=== PATIENT | female | born 1975 ===

== ENCOUNTER 2016-08-05 16:55 | Emergency (ER) | payer SELFPAY ==
[2016-08-05 16:56] VITALS: BMI 24.9
[2016-08-05 17:22] VITALS: BP 106/65; PULSE 84; RESP 18; O2SAT 100
--- NOTE | 2016-08-05 17:41 | ED PDOC ---
HPI: CCC, URI, Sore Throat Time Seen by Provider: 08/05/16 17:28 Chief Complaint (Nursing): ENT Problem Chief Complaint (Provider): right earache History Per: Patient History/Exam Limitations: no limitations Have you had recent travel within the past 21 days to any of the following countries: [place], [place], [place] or [place]?: No Onset/Duration Of Symptoms: Days (x 3) Location Of Pain: Ear(s), Throat Associated Symptoms: denies: Fever Additional Complaint(s): Catia Montiel is a 41 year old female, with no previous medial history, who presents to the ED with complaints of right earache ongoing for the past 3 days. Pt states pain radiated from the ear to her throat. Pt denies any recent swimming, fevers or changes in hearing. Pt reports to self medicating with motrin to alleviate symptoms which she reports to last taking yesterday. Pt denies any additional complaints at this time. Of note, pt reports to experiencing similar symptoms last year where she was prescribed pills and ear drops. PMD: none provided Past Medical History Reviewed: Historical Data, Nursing Documentation, Vital Signs Vital Signs: Last Vital Signs Temp Pulse 84 08/05/16 17:20 Resp 18 08/05/16 17:20 BP 106/65 08/05/16 17:20 Pulse Ox 100 08/05/16 17:47 - Medical History PMH: Hypothyroidism - Family History Family History: States: No Known Family Hx - Home Medications Home Medications: Ambulatory Orders Medication Instructions Recorded Ciprofloxacin [Cipro] 500 mg PO BID 10/08/15 Docusate [Colace] 100 mg PO Q8 10/08/15 Loratadine [Claritin] 10 mg PO DAILY 10/08/15 Oxycodone HCl/Acetaminophen 1 tab PO Q6 PRN 10/08/15 [Percocet 325 mg-5 mg] Ciprofloxacin [Cipro] 500 mg PO BID #14 tab 01/18/16 Methylprednisolone [Medrol Dose 4 mg PO DAILY #21 mg 01/18/16 Pack (21 tabs)] Naproxen [Naprosyn] 500 mg PO BID PRN #30 tab 01/18/16 Amoxicillin [Amoxil 500 mg Cap] 500 mg PO Q8 #30 cap 08/05/16 Ofloxacin Otic 0.3% [Floxin 0.3% 10 drop AD DAILY #1 bottle 08/05/16 Otic Soln] - Allergies Allergies/Adverse Reactions: Allergies Allergy/AdvReac Type Severity Reaction Status Date / Time No Known Allergies Allergy Verified 01/18/16 15:01 Review of Systems ROS Statement: Except As Marked, All Systems Reviewed And Found Negative Constitutional: Negative for: Fever ENT: Positive for: Ear Pain, Throat Pain. Negative for: Other (changes in hearing ) Physical Exam - Reviewed Nursing Documentation Reviewed: Yes Vital Signs Reviewed: Yes - Physical Exam Appears: Positive for: Well, Non-toxic, No Acute Distress Head Exam: Positive for: ATRAUMATIC, NORMAL INSPECTION, NORMOCEPHALIC Skin: Positive for: Normal Color, Warm, Dry ENT: Positive for: TM Is/Are (right TM is erythematous and bulging. left within normal limits. ), Other (right ear canal with exudates and edema. Pain with pulling on tragus ). Negative for: Pharyngeal Erythema, Tonsillar Exudate, Tonsillar Swelling Neurologic/Psych: Positive for: Alert, Oriented - ECG O2 Sat by Pulse Oximetry: 100 (RA) Pulse Ox Interpretation: Normal - Progress ED Course And Treament: FSBS: 140 Pt. states she ate a granola bar while in the waiting room. Pt. instructed to f/u with [facility] for further evaluation of elevated blood sugar. Medical Decision Making Medical Decision Making: Initial Impression: otitis externa and media Initial Plan: * accucheck * reevaluation Scribe Attestation: Documented by Rosaline Muñoz, acting as a scribe for Wesly Rosario PA-C. Provider Scribe Attestation: All medical record entries made by the Scribe were at my direction and personally dictated by me. I have reviewed the chart and agree that the record accurately reflects my personal performance of the history, physical exam, medical decision making, and the department course for this patient. I have also personally directed, reviewed, and agree with the discharge instructions and disposition. Disposition - Clinical Impression Clinical Impression: Otitis externa, Otitis media, Hyperglycemia - Patient ED Disposition Is Patient to be Admitted: No - Disposition Referrals: [facility] [Outside] Disposition: Routine/Home Disposition Time: 18:05 Condition: STABLE Additional Instructions: Follow up with [facility] in 2 days for further evaluation. Prescriptions: Amoxicillin [Amoxil 500 mg Cap] 500 mg PO Q8 #30 cap Ofloxacin Otic 0.3% [Floxin 0.3% Otic Soln] 10 drop AD DAILY #1 bottle Instructions: Otitis Externa (ED), Otitis Media (ED)
== END 2016-08-05 18:18 | disposition home or self-care (01) ==
LOC: H.ER 16:55
DX: R73.9 Hyperglycemia, unspecified (principal); H66.91 Otitis media, unspecified, right ear; E03.9 Hypothyroidism, unspecified; J02.9 Acute pharyngitis, unspecified

== ENCOUNTER 2016-08-06 20:03 | Emergency (ER) | payer SELFPAY ==
[2016-08-06 20:03] VITALS: BMI 24.9
[2016-08-06 20:19] VITALS: BP 116/64; PULSE 104; RESP 20; TEMP 98.6; O2SAT 98
--- NOTE | 2016-08-06 21:28 | ED PDOC ---
HPI: General Adult Time Seen by Provider: 08/06/16 20:20 Chief Complaint (Nursing): ENT Problem Chief Complaint (Provider): Ear Ache History Per: Patient History/Exam Limitations: no limitations Onset/Duration Of Symptoms: Days (x3 days) Have you had recent travel within the past 21 days to any of the following countries: [place], [place], [place] or [place]?: No Current Symptoms Are (Timing): Still Present Severity: Moderate Location: right tympanic membrane Quality: aching pain Recently: Seen In ED (diagnosed yesterday w/ otitis media and otitis externa), Treated By A Physician (seen by paul purdy yesterday) Additional Complaint(s): Catia Montiel is a 41 year old female, with a past medical history of otitis media, otitis externa, and hypothyroidism, who presents to the emergency department for the evaluation of a right ear ache that the patient has been experiencing for the past 3 days. Patient was seen by PAUL Purdy yesterday, in which he diagnosed the patient with otitis media and otitis externa. Patient was prescribed ofloxacin ear drops and amoxicillin. Denies hearing changes or a fever. Of note, patient took one dose of Ibuprofen yesterday; however, it provided no relief, prompting her return to the emergency department. PMD: Clinic, Non [facility] Provider Past Medical History Reviewed: Historical Data, Nursing Documentation, Vital Signs Vital Signs: Last Vital Signs Temp 98.6 F 08/06/16 20:15 Pulse 104 H 08/06/16 20:15 Resp 20 08/06/16 20:15 BP 116/64 08/06/16 20:15 Pulse Ox 98 08/06/16 21:44 - Medical History PMH: Hypothyroidism Other PMH: Otitis media, Otitis externa - Surgical History Surgical History: No Surg Hx - Family History Family History: States: Unknown Family Hx - Social History Current smoker - smoking cessation education provided: No Ex-Smoker (has not smoked in the last 12 months): No Alcohol: Occasional Drugs: Denies - Home Medications Home Medications: Ambulatory Orders Medication Instructions Recorded Ciprofloxacin [Cipro] 500 mg PO BID 10/08/15 Docusate [Colace] 100 mg PO Q8 10/08/15 Loratadine [Claritin] 10 mg PO DAILY 10/08/15 Oxycodone HCl/Acetaminophen 1 tab PO Q6 PRN 10/08/15 [Percocet 325 mg-5 mg] Ciprofloxacin [Cipro] 500 mg PO BID #14 tab 01/18/16 Methylprednisolone [Medrol Dose 4 mg PO DAILY #21 mg 01/18/16 Pack (21 tabs)] Naproxen [Naprosyn] 500 mg PO BID PRN #30 tab 01/18/16 Amoxicillin [Amoxil 500 mg Cap] 500 mg PO Q8 #30 cap 08/05/16 Ofloxacin Otic 0.3% [Floxin 0.3% 10 drop AD DAILY #1 bottle 08/05/16 Otic Soln] Ciprofloxacin [Cipro] 500 mg PO BID #14 tab 08/06/16 Ibuprofen [Motrin Tab] 800 mg PO Q8 PRN #30 tab 08/06/16 - Allergies Allergies/Adverse Reactions: Allergies Allergy/AdvReac Type Severity Reaction Status Date / Time No Known Allergies Allergy Verified 01/18/16 15:01 Review of Systems ROS Statement: Except As Marked, All Systems Reviewed And Found Negative Constitutional: Negative for: Fever ENT: Positive for: Ear Pain (right ear). Negative for: Other (hearing changes) Physical Exam - Reviewed Nursing Documentation Reviewed: Yes Vital Signs Reviewed: Yes - Physical Exam Appears: Positive for: Non-toxic, No Acute Distress ENT: Positive for: Normal ENT Inspection, TM Is/Are (R erythematous and bulging ; mild edema and yellow exudates of right ear canal). Negative for: Other ( mastoid tenderness or b/l swelling) Neurologic/Psych: Positive for: Alert, Oriented - ECG O2 Sat by Pulse Oximetry: 98 (RA) Pulse Ox Interpretation: Normal Medical Decision Making Medical Decision Makin:20 Initial Impression: Otitis media, Otitis externa Initial Plan: * Toradol 15 mg IM * Reevaluation Scribe Attestation: Documented by Jesse Gutierrez, acting as a scribe for PAUL Purdy. Provider Scribe Attestation: All medical record entries made by the Scribe were at my direction and personally dictated by me. I have reviewed the chart and agree that the record accurately reflects my personal performance of the history, physical exam, medical decision making, and the department course for this patient. I have also personally directed, reviewed, and agree with the discharge instructions and disposition. Disposition - Clinical Impression Clinical Impression: Otitis media, Otitis externa - Patient ED Disposition Is Patient to be Admitted: No - Disposition Disposition: Routine/Home Disposition Time: 20:45 Condition: STABLE Prescriptions: Ciprofloxacin [Cipro] 500 mg PO BID #14 tab Ibuprofen [Motrin Tab] 800 mg PO Q8 PRN #30 tab PRN Reason: pain Instructions: Otitis Externa (ED), Otitis Media (ED) Print Language: TAMAZIGHT
== END 2016-08-06 20:57 | disposition home or self-care (01) ==
LOC: H.ER 20:03
DX: H66.90 Otitis media, unspecified, unspecified ear (principal); E03.9 Hypothyroidism, unspecified; Z87.891 Personal history of nicotine dependence

== ENCOUNTER 2016-12-29 18:23 | Emergency (ER) | payer SELFPAY ==
[2016-12-29 18:23] VITALS: BMI 24.9
[2016-12-29 18:43] VITALS: BP 125/69; PULSE 85; RESP 16; O2SAT 100
--- NOTE | 2016-12-29 19:26 | ED PDOC ---
HPI: General Adult Time Seen by Provider: 12/29/16 18:50 Chief Complaint (Nursing): Flu-like Symptoms Chief Complaint (Provider): ENT problem History Per: Patient History/Exam Limitations: no limitations Onset/Duration Of Symptoms: Days (2x) Current Symptoms Are (Timing): Still Present Severity: Moderate Additional Complaint(s): 41 year old female with no pertinent medical history presents to the ED with complaints of right each discomfort that started 2x days ago. She reports that it started as an itching feeling, but is now painful. She reports taking antibiotics (which she obtained "from her country") and advil (5x hours prior to arrival) with no relief. She reports having a fever and cough. She denies having nausea, vomiting, and diarrhea. PMD: not provided. Past Medical History Reviewed: Historical Data, Nursing Documentation, Vital Signs Vital Signs: Last Vital Signs Temp 99.0 F 12/29/16 20:21 Pulse 85 12/29/16 18:39 Resp 16 12/29/16 18:39 BP 125/69 12/29/16 18:39 Pulse Ox 100 12/29/16 19:39 - Medical History PMH: Hypothyroidism - Surgical History Surgical History: No Surg Hx - Family History Family History: States: No Known Family Hx - Living Arrangements Living Arrangements: With Family - Social History Current smoker - smoking cessation education provided: No Alcohol: Social Drugs: Denies - Home Medications Home Medications: Ambulatory Orders Medication Instructions Recorded Ciprofloxacin [Cipro] 500 mg PO BID 10/08/15 Docusate [Colace] 100 mg PO Q8 10/08/15 Loratadine [Claritin] 10 mg PO DAILY 10/08/15 Oxycodone HCl/Acetaminophen 1 tab PO Q6 PRN 10/08/15 [Percocet 325 mg-5 mg] Ciprofloxacin [Cipro] 500 mg PO BID #14 tab 01/18/16 Methylprednisolone [Medrol Dose 4 mg PO DAILY #21 mg 01/18/16 Pack (21 tabs)] Naproxen [Naprosyn] 500 mg PO BID PRN #30 tab 01/18/16 Amoxicillin [Amoxil 500 mg Cap] 500 mg PO Q8 #30 cap 08/05/16 Ofloxacin Otic 0.3% [Floxin 0.3% 10 drop AD DAILY #1 bottle 08/05/16 Otic Soln] Ciprofloxacin [Cipro] 500 mg PO BID #14 tab 08/06/16 Ibuprofen [Motrin Tab] 800 mg PO Q8 PRN #30 tab 08/06/16 Amoxicillin/Clavulanate [Augmentin 1 tab PO BID #14 tab 12/29/16 875 MG-125 MG] Ibuprofen [Motrin] 600 mg PO Q8 PRN #21 tab 12/29/16 Neomycin/Polymyxin/Hydrocort 4 drop AD QID #1 bottle 12/29/16 [Cortisporin Otic Soln] oxyCODONE/Acetaminophen [Percocet 1 ea PO Q6 PRN #8 tab 12/29/16 5/325 mg Tab] - Allergies Allergies/Adverse Reactions: Allergies Allergy/AdvReac Type Severity Reaction Status Date / Time No Known Allergies Allergy Verified 12/29/16 18:39 Review of Systems ROS Statement: Except As Marked, All Systems Reviewed And Found Negative Constitutional: Positive for: Fever ENT: Positive for: Ear Pain (right ear) Respiratory: Positive for: Cough Gastrointestinal: Negative for: Nausea, Vomiting, Diarrhea Physical Exam - Reviewed Nursing Documentation Reviewed: Yes Vital Signs Reviewed: Yes - Physical Exam Appears: Positive for: Well, Non-toxic, No Acute Distress Head Exam: Positive for: ATRAUMATIC, NORMOCEPHALIC Skin: Positive for: Normal Color, Warm, Dry Eye Exam: Positive for: Normal appearance ENT: Positive for: TM Is/Are (TM visualized (+) erythema)), Other (right ear: edema of canal.) Respiratory: Positive for: Normal Breath Sounds. Negative for: Respiratory Distress Lymphatic: Positive for: Adenopathy (auricular lymph adenopathy) Neurologic/Psych: Positive for: Alert, Oriented (3x) - ECG O2 Sat by Pulse Oximetry: 100 (RA) Pulse Ox Interpretation: Normal Medical Decision Making Medical Decision Makin:50 Initial impression: 41 year old female with right ear pain. Initial plan: * urine * toradol 30 mg IM * reevaluation Scribe Attestation: Documented by Arianne Aviles, acting as a scribe for Priscila Hutchison PA-C. Provider Scribe Attestation: All medical record entries made by the Scribe were at my direction and personally dictated by me. I have reviewed the chart and agree that the record accurately reflects my personal performance of the history, physical exam, medical decision making, and the department course for this patient. I have also personally directed, reviewed, and agree with the discharge instructions and disposition. Disposition - Clinical Impression Clinical Impression: Otitis externa, Otitis media - Patient ED Disposition Is Patient to be Admitted: No - Disposition Referrals: [facility] [Outside] Amadou Farah MD [Staff Provider] - Disposition: Routine/Home Disposition Time: 19:20 Condition: FAIR Prescriptions: Amoxicillin/Clavulanate [Augmentin 875 MG-125 MG] 1 tab PO BID #14 tab Ibuprofen [Motrin] 600 mg PO Q8 PRN #21 tab PRN Reason: Pain, Moderate (4-7) Neomycin/Polymyxin/Hydrocort [Cortisporin Otic Soln] 4 drop AD QID #1 bottle oxyCODONE/Acetaminophen [Percocet 5/325 mg Tab] 1 ea PO Q6 PRN #8 tab PRN Reason: Pain, Severe (8-10) Instructions: Otitis Externa (ED), Otitis Media (ED) Forms: [employer] (Tajik), [employer] (Swedish), [facility] ED School /Work Excuse Print Language: GREEK
[2016-12-29 20:22] VITALS: TEMP 99
== END 2016-12-29 20:21 | disposition home or self-care (01) ==
LOC: H.ER 18:23
DX: H60.91 Unspecified otitis externa, right ear (principal); E03.9 Hypothyroidism, unspecified
CPT/HCPCS: 81025; 96372; 99283; J1885

== ENCOUNTER 2018-06-29 16:04 | Emergency (ER) | payer SELFPAY ==
[2018-06-29 16:05] VITALS: BMI 24.9
[2018-06-29 16:54] VITALS: BP 124/76; PULSE 68; RESP 18; TEMP 98.2
[2018-06-29 16:57] VITALS: O2SAT 99
--- NOTE | 2018-06-29 17:29 | ED PDOC ---
HPI: Eye Injury/Pain Time Seen by Provider: 06/29/18 17:01 Chief Complaint (Nursing): Eye Problem Chief Complaint (Provider): Right Eye Redness History Per: Patient History/Exam Limitations: no limitations Onset/Duration Of Symptoms: Days (x4) Current Symptoms Are (Timing): Still Present Additional Complaint(s): 42 year old female presents to the ED for evaluation of right eye redness. Patient states five days ago she had a headache, and four days ago woke up with redness to her right eye. Currently, patient denies any headache, eye pain, visual changes, trauma, history of hypertension, cough, or sneezing. PMD: [facility] Past Medical History Reviewed: Historical Data, Nursing Documentation, Vital Signs Vital Signs: Last Vital Signs Temp 98.2 F 06/29/18 16:55 Pulse 68 06/29/18 16:55 Resp 18 06/29/18 16:55 BP 124/76 06/29/18 16:55 Pulse Ox 99 06/29/18 16:55 - Medical History PMH: Hypothyroidism - Surgical History Surgical History: No Surg Hx - Family History Family History: States: Unknown Family Hx - Home Medications Home Medications: Ambulatory Orders Medication Instructions Recorded Ciprofloxacin [Cipro] 500 mg PO BID 10/08/15 Docusate [Colace] 100 mg PO Q8 10/08/15 Loratadine [Claritin] 10 mg PO DAILY 10/08/15 Oxycodone HCl/Acetaminophen 1 tab PO Q6 PRN 10/08/15 [Percocet 325 mg-5 mg] Ciprofloxacin [Cipro] 500 mg PO BID #14 tab 01/18/16 Methylprednisolone [Medrol Dose 4 mg PO DAILY #21 mg 01/18/16 Pack (21 tabs)] Naproxen [Naprosyn] 500 mg PO BID PRN #30 tab 01/18/16 Amoxicillin [Amoxil 500 mg Cap] 500 mg PO Q8 #30 cap 08/05/16 Ofloxacin Otic 0.3% [Floxin 0.3% 10 drop AD DAILY #1 bottle 08/05/16 Otic Soln] Ciprofloxacin [Cipro] 500 mg PO BID #14 tab 08/06/16 Ibuprofen [Motrin Tab] 800 mg PO Q8 PRN #30 tab 08/06/16 Amoxicillin/Clavulanate [Augmentin 1 tab PO BID #14 tab 12/29/16 875 MG-125 MG] Ibuprofen [Motrin] 600 mg PO Q8 PRN #21 tab 12/29/16 Neomycin/Polymyxin/Hydrocort 4 drop AD QID #1 bottle 12/29/16 [Cortisporin Otic Soln] oxyCODONE/Acetaminophen [Percocet 1 ea PO Q6 PRN #8 tab 12/29/16 5/325 mg Tab] - Allergies Allergies/Adverse Reactions: Allergies Allergy/AdvReac Type Severity Reaction Status Date / Time No Known Allergies Allergy Verified 06/29/18 16:55 Review of Systems ROS Statement: Except As Marked, All Systems Reviewed And Found Negative Eyes: Positive for: Redness (to right eye). Negative for: Pain, Vision Change ENT: Negative for: Other (sneezing) Respiratory: Negative for: Cough Physical Exam - Reviewed Nursing Documentation Reviewed: Yes Vital Signs Reviewed: Yes - Physical Exam Appears: Positive for: No Acute Distress Head Exam: Positive for: ATRAUMATIC, NORMOCEPHALIC Skin: Positive for: Normal Color, Warm, Dry. Negative for: Rash Eye Exam: Positive for: Other (subconjunctival hemorrhage to right lateral eye; left eye unremarkable). Negative for: Periorbital swelling, Periorbital tenderness Cardiovascular/Chest: Positive for: Regular Rate, Rhythm Respiratory: Positive for: Normal Breath Sounds. Negative for: Respiratory Distress Neurological/Psych: Positive for: Awake, Alert - ECG O2 Sat by Pulse Oximetry: 99 (RA) Pulse Ox Interpretation: Normal Medical Decision Making Medical Decision Making: Time: 1730 Initial Impression: subconjunctival hemorrhage of right eye Initial Plan: --Subconjunctival hemorrhage explained to patient along with its probable causes. Informed that while this does not require emergent care as it will resolve without medical intervention, she may want to follow up with her PMD if it is a continuous problem. Stable for discharge at this time with all questions answered. Patient verbalized agreement of plan. Scribe Attestation: Documented by Ana Juan, acting as a scribe for Nish Leiva PA-C. Provider Scribe Attestation: All medical record entries made by the Scribe were at my direction and personally dictated by me. I have reviewed the chart and agree that the record accurately reflects my personal performance of the history, physical exam, medical decision making, and the department course for this patient. I have also personally directed, reviewed, and agree with the discharge instructions and disposition. Disposition - Clinical Impression Clinical Impression: Conjunctival hemorrhage of right eye - Disposition Disposition: Routine/Home Disposition Time: 17:35 Condition: STABLE Instructions: Subconjunctival Hemorrhage Forms: [employer] (Kosovan)
== END 2018-06-29 17:44 | disposition home or self-care (01) ==
LOC: H.ER 16:04
DX: H11.31 Conjunctival hemorrhage, right eye (principal); E03.9 Hypothyroidism, unspecified

== ENCOUNTER 2018-08-18 12:09 | Emergency (ER) | payer SELFPAY ==
[2018-08-18 12:10] VITALS: BMI 24.9
[2018-08-18] MEDS ORDERED: Dexamethasone 10 MG in Sodium Chloride 0.9% 50 ML IVP ONE (13:09)
[2018-08-18] MEDS ORDERED: Sodium Chloride 0.9% 1,000 ML IV STA (13:10)
--- NOTE | 2018-08-18 13:39 | ED PDOC ---
HPI: General Adult Time Seen by Provider: 08/18/18 12:33 Chief Complaint (Nursing): Shortness Of Breath History Per: Patient Additional Complaint(s): Pt. states since Tuesday she developed sore throat with tactile fever. She self medicated with Amoxicillin 500mg BID (started on Tuesday and took 2 doses then but did not take any meds today) which she obtained from [place]. Has also been taking Advil for pain with minimal relief. Further states she experiences SOB which she describes as "trouble speaking due to throat pain." Currently without any SOB or chest pain. States that SOB only occurred once yesterday. Denies cough, congestion, rash, abdominal pain, palpitations, hemoptysis, sick contacts, recent travel. Past Medical History Reviewed: Historical Data, Nursing Documentation, Vital Signs Vital Signs: Last Vital Signs Temp 98.1 F 08/18/18 12:16 Pulse 90 08/18/18 12:16 Resp 18 08/18/18 12:16 BP 101/69 08/18/18 12:16 Pulse Ox 99 08/18/18 13:29 - Medical History PMH: Hypothyroidism - Surgical History Surgical History: No Surg Hx - Family History Family History: States: No Known Family Hx - Home Medications Home Medications: Ambulatory Orders Medication Instructions Recorded Ciprofloxacin [Cipro] 500 mg PO BID 10/08/15 Docusate [Colace] 100 mg PO Q8 10/08/15 Loratadine [Claritin] 10 mg PO DAILY 10/08/15 Oxycodone HCl/Acetaminophen 1 tab PO Q6 PRN 10/08/15 [Percocet 325 mg-5 mg] Ciprofloxacin [Cipro] 500 mg PO BID #14 tab 01/18/16 Methylprednisolone [Medrol Dose 4 mg PO DAILY #21 mg 01/18/16 Pack (21 tabs)] Naproxen [Naprosyn] 500 mg PO BID PRN #30 tab 01/18/16 Amoxicillin [Amoxil 500 mg Cap] 500 mg PO Q8 #30 cap 08/05/16 Ofloxacin Otic 0.3% [Floxin 0.3% 10 drop AD DAILY #1 bottle 08/05/16 Otic Soln] Ciprofloxacin [Cipro] 500 mg PO BID #14 tab 08/06/16 Ibuprofen [Motrin Tab] 800 mg PO Q8 PRN #30 tab 08/06/16 Amoxicillin/Clavulanate [Augmentin 1 tab PO BID #14 tab 12/29/16 875 MG-125 MG] Ibuprofen [Motrin] 600 mg PO Q8 PRN #21 tab 12/29/16 Neomycin/Polymyxin/Hydrocort 4 drop AD QID #1 bottle 12/29/16 [Cortisporin Otic Soln] oxyCODONE/Acetaminophen [Percocet 1 ea PO Q6 PRN #8 tab 12/29/16 5/325 mg Tab] Naproxen [Naprosyn] 500 mg PO BID PRN #10 tab 08/18/18 - Allergies Allergies/Adverse Reactions: Allergies Allergy/AdvReac Type Severity Reaction Status Date / Time No Known Allergies Allergy Verified 08/18/18 12:16 Review of Systems ROS Statement: Except As Marked, All Systems Reviewed And Found Negative ENT: Positive for: Throat Pain, Throat Swelling Physical Exam - Physical Exam Appears: Positive for: Well, Non-toxic, No Acute Distress Skin: Positive for: Normal Color, Warm. Negative for: Rash Eye Exam: Positive for: Normal appearance ENT: Positive for: TM Is/Are (non-erythematous, non-bulging b/l), Pharyngeal Erythema. Negative for: Tonsillar Exudate, Tonsillar Swelling Neck: Positive for: Normal, Painless ROM, Supple Cardiovascular/Chest: Positive for: Regular Rate, Rhythm Respiratory: Positive for: Normal Breath Sounds. Negative for: Stridor Gastrointestinal/Abdominal: Positive for: Soft. Negative for: Tenderness Neurological/Psych: Positive for: Awake, Alert, Oriented (x3) - Laboratory Results Result Diagrams: 08/18/18 13:24 08/18/18 13:24 - ECG O2 Sat by Pulse Oximetry: 99 - Progress ED Course And Treament: Labs, decadron 10mg IV, toradol 30mg IV, IV NS bolus ordered. Pt. informed of results. Given strict instructions to avoid physical activity until cleared by PMD. Also told to stop Amoxicillin. Instructed to f/u with [facility] (pt's PMD) for further evaluation but is to return to ED immediately if symptoms worsen. Pt. verbalized correct understanding of necessary f/u and care. Disposition - Clinical Impression Clinical Impression: Infectious mononucleosis - Patient ED Disposition Is Patient to be Admitted: No - Disposition Disposition: Routine/Home Disposition Time: 14:30 Condition: IMPROVED Additional Instructions: FOLLOW UP WITH [facility] FOR FURTHER EVALUATION RETURN TO ED IMMEDIATELY IF SYMPTOMS WORSEN STOP TAKING AMOXICILLIN CYNTHIA CONTRERAS, thank you for letting us take care of you today. Your provider was Tu Santana MD and you were treated for SOB, EAR AND THROAT PAIN. The emergency medical care you received today was directed at your acute symptoms. If you were prescribed any medication, please fill it and take as directed. It may take several days for your symptoms to resolve. Return to the Emergency Department if your symptoms worsen, do not improve, or if you have any other problems. Please contact your doctor or call one of the physicians/clinics you have been referred to that are listed on the Patient Visit Information form that is included in your discharge packet. Bring any paperwork you were given at discharge with you along with any medications you are taking to your follow up visit. Our treatment cannot replace ongoing medical care by a primary care provider outside of the emergency department. Thank you for allowing the [facility] team to be part of your care today. If you had an X-Ray or CT scan: A Radiologist will review the ED reading if any change in treatment is needed we will contact you. If you had a blood, urine, or wound culture: It will take several days for the results, if any change in treatment is needed we will contact you. If you had an STI test: It will take 48 hours for the results. Please call after 1 week if you have not heard back. Prescriptions: Naproxen [Naprosyn] 500 mg PO BID PRN #10 tab PRN Reason: Pain Instructions: Mononucleosis (DC) Print Language: MALAY
[2018-08-18 14:21] LABS: BASO % 0.5 % (0.0-2.0); EOS # 0.2 K/uL (0.0-0.7); EOS % 2.7 % (0.0-4.0); HEMOGLOBIN 13.2 g/dL (12.0-16.0); LYMPH # 1.3 K/uL (1.0-4.3); LYMPH % 17.9 % (20.0-40.0); MEAN CORPUSCULAR HGB CONC 34.1 g/dL (33.0-37.0); MEAN PLATELET VOLUME 9.7 fl (7.2-11.7); MONO # 0.7 K/uL (0.0-0.8); MONO % 8.9 % (0.0-10.0); NEUT # 5.2 K/uL (1.8-7.0); NRBC % 0.1 % (0.0-0.0); RBC 4.25 Mil/uL (3.80-5.20); WHITE BLOOD COUNT 7.4 K/uL (4.8-10.8)
[2018-08-18 14:33] LABS: ALB/GLOB RATIO 1.3 (1.0-2.1); ALBUMIN 4.3 g/dL (3.5-5.0); ALT/SGPT 23 U/L (9-52); AST/SGOT 23 U/L (14-36); BLOOD UREA NITROGEN 8 mg/dl (7-17); CALCIUM 9.2 mg/dL (8.4-10.2); GFR NON-AFRICAN AMERICAN > 60
[2018-08-18 16:06] VITALS: BP 106/70; PULSE 78; RESP 19; TEMP 97.6
--- NOTE | 2018-08-18 18:20 | CARD ---
APPROVED REPORT Date of service: 08/18/2018 EKG Measurement Heart [id number] <Conclusion> Normal sinus rhythm Normal ECG
[2018-08-18 19:35] VITALS: O2SAT 99
== END 2018-08-18 16:07 | disposition home or self-care (01) ==
LOC: H.ER 12:09
DX: B27.90 Infectious mononucleosis, unspecified without complication (principal); E03.9 Hypothyroidism, unspecified
CPT/HCPCS: 80053; 81025; 85025; 86308; 86664; 86665; 87040; 93005; 96374; 96375; 99283; J1100; J1885; J7030